=== PATIENT | female | born 1965 | race Caucasian/White ===

== ENCOUNTER 2020-11-23 10:50 | Emergency (ER) | payer SELFPAY ==
[2020-11-23] MEDS ORDERED: ZOFRAN ODT 4 MG PO ONE (11:12)
[2020-11-23] MEDS ORDERED: ZOFRAN ODT 4 MG ONE (11:14)
[2020-11-23] MEDS ORDERED: Zofran 4 MG/2 ML VIAL IV ONE (13:08)
[2020-11-23] MEDS ORDERED: Sodium Chloride 0.9% 1000 ML 1,000 ML IV STA (13:08)
--- NOTE | 2020-11-23 13:15 | ERPHSYRPT ---
- History of Present Illness Time Seen by Provider: 11/23/20 11:10 Source: patient Exam Limitations: no limitations Patient Subjective Stated Complaint: pt here for nausea, she is out of quaritine on the nov 21. she states she is able to drink some water , she is unable to take her bactrim for a uti Triage Nursing Assessment: pt alert, arrived per wc, resp easy, skin w/d/p. face mask in place, no edema noted, Physician History: Patient is a 55-year-old female presents to our ED for evaluation of nausea. Patient is just out of quarantine for Covid. Patient recently diagnosed with urinary tract infection. She was prescribed Bactrim. Patient has not been able to take her Bactrim due to nausea. No vomiting. No diarrhea. No rash. No fever. Symptoms are mild to moderate in intensity. No specific worsening improving factors. Patient denies pain of any sort at this time. Patient voices no other complaints or concerns at this time. Timing/Duration: yesterday Severity: moderate Modifying Factors: Improves With: nothing Associated Symptoms: denies symptoms Allergies/Adverse Reactions: No Known Drug Allergies Allergy (Unverified 11/23/20 11:12) Home Medications: Smz/Tmp Ds Tablet [Bactrim Ds Tablet] 1 ea DAILY 11/23/20 [History] Hx Influenza Vaccination/Date Given: No Hx Pneumococcal Vaccination/Date Given: No Immunizations Up to Date: Yes Travel Risk - International Travel Have you traveled outside of the country in past 3 weeks: No - Coronavirus Screening Are you exhibiting any of the following symptoms?: Yes Symptoms: Vomiting/Diarrhea Close contact with a COVID-19 positive Pt in past 14-21 Days: Yes - Vaccine Status Have you recieved a Covid-19 vaccination: No - Review of Systems Constitutional: No Symptoms, No Fever, No Chills Eyes: No Symptoms Ears, Nose, & Throat: No Symptoms Respiratory: No Symptoms, No Cough, No Dyspnea Cardiac: No Symptoms, No Chest Pain, No Edema, No Syncope Abdominal/Gastrointestinal: No Symptoms, No Abdominal Pain, No Nausea, No Vomiting, No Diarrhea Genitourinary Symptoms: No Symptoms, No Dysuria Musculoskeletal: No Symptoms, No Back Pain, No Neck Pain Skin: No Symptoms, No Rash Neurological: No Symptoms, No Dizziness, No Focal Weakness, No Sensory Changes Psychological: No Symptoms Endocrine: No Symptoms Hematologic/Lymphatic: No Symptoms Immunological/Allergic: No Symptoms All Other Systems: Reviewed and Negative - Past Medical History Pertinent Past Medical History: No - Past Surgical History Past Surgical History: Yes Other Surgical History: carpal tunnel - Social History Smoking Status: Never smoker Exposure to second hand smoke: No Drug Use: none Patient Lives Alone: No - Female History Hx Last Menstrual Period: post Hx Now: No - Nursing Vital Signs Nursing Vital Signs: Initial Vital Signs Temperature 96.7 F 11/23/20 11:03 Pulse Rate 107 H 11/23/20 11:03 Respiratory Rate 18 11/23/20 11:03 Blood Pressure 127/65 11/23/20 11:03 O2 Sat by Pulse Oximetry 95 11/23/20 11:03 Pain Scale Pain Intensity 0 - Physical Exam General Appearance: no apparent distress, alert Eye Exam: PERRL/EOMI, eyes nml inspection Ears, Nose, Throat Exam: normal ENT inspection, TMs normal, pharynx normal, moist mucous membranes Neck Exam: normal inspection, non-tender, supple, full range of motion Respiratory Exam: normal breath sounds, lungs clear, airway intact, No respiratory distress Cardiovascular Exam: regular rate/rhythm, normal heart sounds, normal peripheral pulses Gastrointestinal/Abdomen Exam: soft, normal bowel sounds, No tenderness, No mass Back Exam: normal inspection, normal range of motion, No CVA tenderness, No vertebral tenderness Extremity Exam: normal inspection, normal range of motion, pelvis stable Neurologic Exam: alert, oriented x 3, cooperative, normal mood/affect, nml cerebellar function, nml station & gait, sensation nml, No motor deficits Skin Exam: normal color, warm, dry, No rash Lymphatic Exam: No adenopathy SpO2 Interpretation: normal SpO2: 98 O2 Delivery: Room Air - Course Nursing assessment & vital signs reviewed: Yes Ordered Tests: Active Orders 24 hr Category Date Time Status IV Insertion STAT Care 11/23/20 13:08 Active CBC W DIFF Stat Lab 11/23/20 13:28 Completed CMP Stat Lab 11/23/20 13:28 Completed LIPASE Stat Lab 11/23/20 13:28 Completed TROPONIN Q3H Lab 11/23/20 16:15 Ordered TROPONIN Q3H Lab 11/23/20 19:15 Ordered TROPONIN Q3H Lab 11/23/20 22:15 Ordered TROPONIN Q3H Lab 11/24/20 01:15 Ordered UA W/RFX UR CULTURE Stat Lab 11/23/20 13:08 Ordered Medication Summary Discontinued Medications Generic Name Dose Route Start Last Admin Trade Name Guerda PRN Reason Stop Dose Admin Sodium Chloride 1,000 mls @ 999 mls/hr 11/23/20 13:08 11/23/20 13:42 Sodium Chloride 0.9% 1000 Ml IV 11/23/20 14:08 999 mls/hr .Q1H1M STA Administration Ceftriaxone Sodium/Dextrose 1 g in 50 mls @ 100 mls/hr 11/23/20 13:18 11/23/20 13:47 Rocephin 1 Gm-D5w 50 Ml Bag IV 11/23/20 13:47 100 ml/hr STAT STA 100 mls/hr Administration Sodium Chloride Confirm 11/23/20 13:40 Sodium Chloride 0.9% 1000 Ml Administered 11/23/20 13:41 Dose 1,000 mls @ ud .ROUTE .STK-MED ONE Ceftriaxone Sodium/Dextrose Confirm 11/23/20 13:40 Rocephin 1 Gm-D5w 50 Ml Bag Administered 11/23/20 13:41 Dose 1 g in 50 mls @ ud IV .STK-MED ONE Ondansetron HCl 4 mg 11/23/20 11:12 11/23/20 11:17 Zofran Odt 4 Mg PO 11/23/20 11:13 4 mg STAT ONE Administration Ondansetron HCl Confirm 11/23/20 11:14 Zofran Odt 4 Mg Administered 11/23/20 11:15 Dose 4 mg .ROUTE .STK-MED ONE Ondansetron HCl 4 mg 11/23/20 13:08 11/23/20 13:45 Zofran 4 Mg/2 Ml Vial IV 11/23/20 13:09 4 mg STAT ONE Administration Ondansetron HCl Confirm 11/23/20 13:40 Zofran 4 Mg/2 Ml Vial Administered 11/23/20 13:41 Dose 4 mg .ROUTE .STK-MED ONE Lab/Rad Data: Laboratory Result Diagrams 11/23/20 13:28 11/23/20 13:28 Laboratory Results 11/23/20 11/23/20 11/23/20 Range/Units 13:28 13:28 13:28 WBC 3.8 L (4.0-10.5) K/mm3 RBC 4.86 (4.1-5.4) M/mm3 Hgb 13.6 (12.0-16.0) gm/dl Hct 40.3 (35-47) % MCV 82.9 (78-100) fl MCH 28.0 (26-32) pg MCHC 33.7 (32-36) g/dl RDW 13.1 (11.5-14.0) % Plt Count 144 L (150-450) K/mm3 MPV 9.9 (7.5-11.0) fl Gran % 73.2 H (36.0-66.0) % Eos # (Auto) 0 (0-0.5) Absolute Lymphs (auto) 0.72 L (1.0-4.6) Absolute Monos (auto) 0.29 (0.0-1.3) Lymphocytes % 18.9 L (24.0-44.0) % Monocytes % 7.6 (0.0-12.0) % Eosinophils % 0.0 (0.00-5.0) % Basophils % 0.3 (0.0-0.4) % Absolute Granulocytes 2.79 (1.4-6.9) Basophils # 0.01 (0-0.4) Sodium 137 (137-145) mmol/L Potassium 3.4 L (3.5-5.1) mmol/L Chloride 103 (98-107) mmol/L Carbon Dioxide 23 (22-30) mmol/L Anion Gap 14.4 (5-15) MEQ/L BUN 14 (7-17) mg/dL Creatinine 0.45 L (0.52-1.04) mg/dL Estimated GFR > 60.0 ML/MIN Glucose 243 H (74-106) mg/dL Calcium 8.6 (8.4-10.2) mg/dL Total Bilirubin 1.30 (0.2-1.3) mg/dL AST 61 H (14-36) U/L ALT 49 H (0-35) U/L Alkaline Phosphatase 113 (38-126) U/L Troponin 0.00 (0.00-0.03) ng/mL Serum Total Protein 6.6 (6.3-8.2) g/dL Albumin 3.4 L (3.5-5.0) g/dL Lipase 54 (23-300) U/L - Progress Progress: improved Progress Note: Patient reassessed. She feels much better. Patient tolerating p.o. Patient is noted to have a urinary tract infection. Patient received Rocephin in our ED. We will discharge patient home now. Patient will resume her Bactrim as prescribed by her primary care physician. We will 40 prescription for Zofran to patient's pharmacy. No indication for further work-up at this time. Will discharge home. Patient agrees to follow-up with primary care doctor within 48 hours for evaluation. Portions of this note were created with voice recognition technology. There may be grammatical, spelling, punctuation or sound alike errors 11/23/20 15:07 Counseled pt/family regarding: lab results, diagnosis, need for follow-up - Departure Departure Disposition: Home Clinical Impression: Nausea Condition: Stable Critical Care Time: No Referrals: DOCTOR,NO FAMILY [Primary Care Provider] - FANG MCCLOUD MD [ACTIVE STAFF] - Additional Instructions: Discharge/Care Plan ANNE MORAN was seen on 11/23/20 in the Emergency Room. The patient was counseled regarding Diagnosis,Lab results, Imaging studies, need for follow up and when to return to the Emergency Room. Prescriptions given: Discharge Note I have spoken with the patient and/or caregivers. I have explained the patient's condition, diagnosis and treatment plan based on the information available to me at this time. I have answered the patient's and/or caregiver's questions and addressed any concerns. The patient and/or caregivers have as good understanding of the patient's diagnosis, condition and treatment plan as can be expected at this point. The vital signs have been stable. The patient's condition is stable and appropriate for discharge from the emergency department. The patient will pursue further outpatient evaluation with the primary care physician or other designated or consulting physician as outlined in the discharge instructions. The patient and/or caregivers are agreeable to this plan of care and follow-up instructions have been explained in detail. The patient and/or caregivers have received these instruction. The patient/and or caregivers are aware that any significant change in condition or worsening of symptoms should prompt an immediate return to this or the closest emergency department or call 911. Prescriptions: Ondansetron ODT 4 MG [Zofran Odt 4 mg] 4 mg PO Q6H PRN PRN #10 tablet PRN Reason: Vomiting
[2020-11-23] MEDS ORDERED: ROCEPHIN 1 Gm-D5w 50 ml Bag** 1 G/50 ML IVPB IV STA (13:18)
[2020-11-23 13:31] LABS: Absolute Neutrophil Ct (ANC) 2.79 (1.4-6.9); BASOPHIL % 0.3 % (0.0-0.4); Basophil (Absolute #) 0.01 (0-0.4); Eosinophil (Absolute #) 0 (0-0.5); Hematocrit 40.3 % (35-47); Hemoglobin 13.6 gm/dl (12.0-16.0); Lymphocyte (Absolute #) 0.72 (1.0-4.6); Lymphocytes % 18.9 % (24.0-44.0); Mean Cell Volume 82.9 fl (78-100); Mean Corpuscular Hgb Concent. 33.7 g/dl (32-36); Mean Platelet Volume 9.9 fl (7.5-11.0); Monocyte (Absolute #) 0.29 (0.0-1.3); Monocytes % 7.6 % (0.0-12.0); Neutrophil % 73.2 % (36.0-66.0); Platelet Count 144 K/mm3 (150-450); Red Blood Count 4.86 M/mm3 (4.1-5.4); Red Cell Distribution Width 13.1 % (11.5-14.0); White Blood Count 3.8 K/mm3 (4.0-10.5)
[2020-11-23] MEDS ORDERED: Sodium Chloride 0.9% 1000 ML 1,000 ML ONE (13:40)
[2020-11-23] MEDS ORDERED: Zofran 4 MG/2 ML VIAL ONE (13:40)
[2020-11-23] MEDS ORDERED: ROCEPHIN 1 Gm-D5w 50 ml Bag** 1 G/50 ML IVPB IV ONE (13:40)
[2020-11-23 14:55] LABS: ALBUMIN 3.4 g/dL (3.5-5.0); ALKALINE PHOSPHATASE 113 U/L (38-126); ANION GAP 14.4 MEQ/L (5-15); BLOOD UREA NITROGEN 14 mg/dL (7-17); CHLORIDE 103 mmol/L (98-107); Calcium 8.6 mg/dL (8.4-10.2); Carbon Dioxide 23 mmol/L (22-30); Creatinine 1 0.45 mg/dL (0.52-1.04); EST GLOMERULAR FILTRATION RATE > 60.0 ML/MIN; Glucose 243 mg/dL (74-106); LIPASE 54 U/L (23-300); Potassium 3.4 mmol/L (3.5-5.1); SGOT/AST 61 U/L (14-36); SGPT/ALT 49 U/L (0-35); SODIUM 137 mmol/L (137-145); Total Protein 6.6 g/dL (6.3-8.2)
[2020-11-23 15:10] VITALS: O2SAT 98
[2020-11-23 15:40] VITALS: BP 114/58; PULSE 88
[2020-11-23 15:58] LABS: Slide Review 1 YES
== END 2020-11-23 15:41 | disposition home or self-care (01) ==
LOC: ED 10:50
DX: R11.0 Nausea (principal)
CPT/HCPCS: 36000; 36415; 80053; 83690; 84484; 85025; 93005; 96374; 99284; J0696; J2405; Q0162